=== PATIENT | male | born 1945 | race Caucasian/White ===

== ENCOUNTER 2019-01-08 11:24 | Day surgery (SDC) | payer MEDICARE ==
[~2019-01-08] VITALS: Ht 170.2 cm; Wt 106.6 kg
[~2019-01-08 11:24] MED LIST: ACET325T9 PO; ASPI325T8 PO; ASPI81TA50 PO; BUPIVACAINE MPF 0.5% 30 ML VIAL. ONE; CIPROFLOXACIN 400MG PREMIX 200 ML IV PRN; GLIP10TA13 PO; HYDR-2765 PO; INSU100V8 SQ; IV RINGERS,LACTATED 1000ML 1,000 ML IV SCH; LEVO100T5 PO; LIDOCAINE 1% PF 2 ML VIAL. ID PRN; LIRA0.6P2 SQ; LISI10TA2 PO; METF500T16 PO; NAPR-695 PO; OMEP20TA8 PO; ONDANSETRON PF 4 MG/2 ML VIAL. IV PRN; PRAV20TA2 PO; PRAV40TA2 PO; PROCHLORPERAZINE 10 MG/2 ML VIAL. IV PRN; TEMA30CA PO; TRAM50TA PO; fentaNYL PF VIAL 100 MCG/2 ML VIAL IV PRN
[2019-01-08] MEDS ORDERED: ONDANSETRON PF 4 MG/2 ML VIAL. ONE (12:27)
[2019-01-08] MEDS ORDERED: PROPOFOL 20 ML IV ONE (12:27)
[2019-01-08] MEDS ORDERED: fentaNYL PF VIAL 100 MCG/2 ML VIAL ONE (12:28)
[2019-01-08] MEDS ORDERED: LIDOCAINE 2% PF 5 ML VIAL. ONE (13:12)
[2019-01-08] MEDS ORDERED: DEXAMETHASONE SOD PHOS 4 MG/ML VIAL ONE (13:13)
[2019-01-08] MEDS ORDERED: SCOPOLAMINE 1.5MG PATCH. TD ONE (13:19)
--- NOTE | 2019-01-08 14:05 | PDOC4 ---
OPERATIVE NOTE Date: Date: January 08, 2019 Pre-Op Diagnosis: left atrophic testicle Post-Op Diagnosis: same Procedure Performed: left simple orchiectomy Surgeon: Stone Bacon MD Anesthesia Type: general Blood Loss: 1 ml Specimans Obtained: left testicle Findings: atrophic left testicle Complications: none Operative Note: see dictation STONE BACON MD January 08, 2019 14:05
[2019-01-08] MEDS ORDERED: HYDR-3164 PO (14:10)
--- NOTE | 2019-01-08 14:11 | DISCH ---
DISCHARGE INSTRUCTIONS Condition on Discharge Condition on Discharge: Stable Activity After Discharge Activity Instructions for Disc: Activity as tolerated Lifting Instructions after Dis: No heavy lifting Exercise Instruction after Dis: Walk 10 min, 3 x per day Diet after Discharge Diet after Discharge: Diabetic No Calorie Level Wound Incision Care Wound/Incision Care: Ice to area for comfort, May get incision wet Contacting the DRMaxine after DC Call your doctor for: Concerns you may have Follow-Up Follow up with: Dr. Bacon in 4 weeks STONE BACON MD January 08, 2019 14:11
--- NOTE | 2019-01-08 14:27 | OP ---
DATE OF SURGERY: 01/08/2019 SURGEON: Stone Bacon MD. MANAGER UNIT: None. PREOPERATIVE DIAGNOSIS: Left atrophic testicle. POSTOPERATIVE DIAGNOSIS: Left atrophic testicle. PROCEDURE PERFORMED: Left simple orchiectomy. ANESTHESIA TYPE: General. INDICATIONS: This is a 73-year-old male who has had longstanding left testicle pain and atrophic testicle. After discussion of risks, benefits and alternatives, he agreed to the above procedure. DESCRIPTION OF PROCEDURE: Informed consent was obtained. The patient was taken to the operating room where general anesthesia was induced. He was placed in the supine position and sterilely prepped and draped. A timeout was performed. Local anesthetic was injected into the upper part of the left scrotum. A skin incision was made with a knife. The subcutaneous tissues were divided with electrocautery. The testicle was then delivered to the field and the surrounding tissues were dissected free with electrocautery. The left spermatic cord was isolated in the left lower groin just above the incision. The spermatic cord was divided into 2 packets and then clamps were placed on each packet. The spermatic cord was divided. Suture ligatures were applied x 2 on each of the spermatic cord clamps. The clamps were removed and hemostasis was excellent. The wound was irrigated. The subcutaneous tissue was closed with 0 Vicryl running suture. The skin was closed with a chromic suture. The patient was then awakened and taken to the recovery room in stable condition. ESTIMATED BLOOD LOSS: 1 mL. COMPLICATIONS: None. SPECIMEN: Left testicle. STONE BACON MD DR: REBECCA/gayla JOB#: [id number] / [id number]
[2019-01-08] MEDS ORDERED: HYDROcodone/APAP 5/325MG 1 TAB TABLET PO ONE (14:30)
[2019-01-08 15:20] VITALS: BP 120/88
[2019-01-11] MEDS ORDERED: SCOPOLAMINE 1.5MG PATCH. TD SCH (09:00)
--- NOTE | 2019-01-13 17:06 | PATHOLOGY ---
[facility] Accession Number: [id number] . 01 Material submitted: . testis - LEFT TESTICLE. Modifiers: left . 01 Clinical history: . Atrophic testicle . 02 Diagnosis: Testis and attached portion of spermatic cord, left simple orchiectomy: - Testicular atrophy, marked. [facility]/01/13/2019 . 02 Comment: There is no evidence of malignancy. ([facility] 01/13/[facility]) . 02 Electronically signed: . Seng Nagel MD, Pathologist NPI- [id number] . 01 Gross description: . The specimen is received in formalin, labeled "Deion Tyler, left testicle". Received is a 21 g orchiectomy specimen consisting of a testicle measuring 4.2 x 3.5 x 2.1 cm with an attached spermatic cord measuring 2.8 cm in length by 1.8 cm in diameter. The surgical margin is inked black. The tunica vaginalis is pale griffith, wrinkled and is loosely attached. The specimen is bivalved to reveal a 2.7 x 1.5 x 1.8 cm testis. The tunica albuginea is yellow-griffith and smooth. The testis is comprised of approximately 40% normal testicular parenchyma, which is light griffith, soft and viable. The remaining cut surfaces display a pale griffith, glistening appearance. No distinct nodules or lesions are noted grossly. The specimen is submitted representatively as follows: . A1 spermatic cord margin A2-A5 accounts receivable representative sections of testis. ([facility]; 01/09/2019) QAC/QAC . 02 Pathologist provided ICD-10: N50.0 . 02 CPT . 211072 Specimen Comment: A courtesy copy of this report has been sent to Specimen Comment: [phone], . Specimen Comment: Report sent to / DR JHA Performed at: [address], [place] [id number] MD Omari Pike MD Phone: [phone] [facility]formed at: [facility] [address] [place], [place] [id number] MD Seng Nagel MD Phone: [phone]
== END 2019-01-08 15:38 | disposition home or self-care (01) ==
LOC: SURG 11:24
PROVIDERS: ATTEND Urology
DX: N50.0 Atrophy of testis (principal); J43.9 Emphysema, unspecified; E11.9 Type 2 diabetes mellitus without complications; Z98.890 Other specified postprocedural states; Z79.899 Other long term (current) drug therapy; Z88.5 Allergy status to narcotic agent; Z88.0 Allergy status to penicillin; Z87.891 Personal history of nicotine dependence; Z72.89 Other problems related to lifestyle; Z79.84 Long term (current) use of oral hypoglycemic drugs
CPT/HCPCS: 54520; 82962; 88305; A7015; J0744; J1100; J2001; J2405; J2704; J3010; J3490; A4461